=== PATIENT | female | born 1990 | race African-American/Black ===

== ENCOUNTER 2017-06-01 19:10 | Inpatient (IN) | payer OTHER ==
[2017-06-01] MEDS ORDERED: DEXTROSE 5%-LACTATED RINGERS 500 ML IV SCH ×2 (20:00→21:00)
[2017-06-01 22:03] VITALS: BMI 47.7
--- NOTE | 2017-06-01 22:06 | HP ---
Past Medical History - Primary Care Physician PCP:: Tahmina Casanova - Admission Chief Complaint: Hyperemesis History of Present Illness: 27 yo edc admitted due vomiting and nausea and abdominal pain cramping no bleeding no CALLEJAS unable to keep liquids and food down - Past Medical History ...: 1 ...Para: 0 ...Term: 0 ...: 0 ...Spon : 0 ...Induced : 0 ...LMP: 01/04/17 ... Weeks Gestation by Dates: 21.1 ...EDC by Dates: 10/11/17 - Past Surgical History Hx Myomectomy: No Hx Transabdominal Cerclage: No Additional Surgical History: left Hip pinned - Smoking History Have you smoked in the past 12 months: No - Alcohol/Substance Use Hx Alcohol Use: No History of Substance Use: reports: None Home Medications - Allergies Allergies/Adverse Reactions: Allergies Allergy/AdvReac Type Severity Reaction Status Date / Time soy Allergy Verified 06/01/17 20:08 Sulfa (Sulfonamide Allergy Verified 06/01/17 20:08 Antibiotics) sulfate Allergy Uncoded 06/01/17 20:08 - Home Medications Home Medications: Ambulatory Orders Vit/Iron Fum/Folic AC [ Tablet] 1 tab PO DAILY 06/01/17 Physical Exam - Maternity Vital Signs: Vital Signs Temperature 100.2 F H 06/01/17 21:00 Pulse Rate 90 06/01/17 21:00 Respiratory Rate 20 06/01/17 21:00 Blood Pressure 122/51 06/01/17 20:11 O2 Sat by Pulse Oximetry (%) Constitutional: Yes: Well Nourished, No Distress Cardiovascular: Yes: WNL, Regular Rate and Rhythm Lungs: Clear to auscultation - Abdominal Exam/OB Number of Fetuses: Single Presentation: Vertex Category: I - Vaginal Exam/OB Vaginal Bleediing: No Hemorrhage Risk Assessment - Risk Factors Risk Score: 0 Risk Level: Low Risk Problem List - Problems (1) Hyperemesis affecting , antepartum Code(s): O21.0 - MILD HYPEREMESIS GRAVIDARUM Assessment/Plan iup at 20 week hyperemesis gravidarum abdominal pain Plan IVF zofran labs Usg
[2017-06-01 22:21] LABS: BASO % 0.1 % (0-2.0); EOS % 0.2 % (0-4.5); HEMATOCRIT 34.2 % (32.4-45.2); HEMOGLOBIN 11.3 GM/dL (10.7-15.3); LYMPH % 8.7 % (8-40); MCH 28.4 pg (25.7-33.7); MCHC 33.1 g/dl (32.0-36.0); MEAN CELL VOLUME 85.8 fl (80-96); MEAN PLT VOLUME 8.1 fl (7.5-11.1); MONO % 2.5 % (3.8-10.2); NEUT % 88.5 % (42.8-82.8); PLATELET COUNT 213 K/MM3 (134-434); RBC 3.98 M/mm3 (3.60-5.2); RDW 14.6 % (11.6-15.6); WHITE BLOOD COUNT 5.4 K/mm3 (4.0-10.0)
[2017-06-01 22:26] LABS: URINE APPEARANCE SLCLOUDY; URINE BILIRUBIN NEGATIVE (NEGATIVE); URINE BLOOD 1+ (NEGATIVE); URINE COLOR DKYELLOW; URINE GLUCOSE (UA) NEGATIVE (NEGATIVE); URINE KETONE 2+ (NEGATIVE); URINE LEUK ESTERASE TRACE (NEGATIVE); URINE NITRITE NEGATIVE (NEGATIVE)
[2017-06-01 22:39] LABS: URINE PROTEIN 1+ (NEGATIVE)
[2017-06-01 22:45] LABS: ALK PHOS 65 U/L (45-117); ANION GAP 10 (8-16); BILIRUBIN,TOTAL 0.3 mg/dL (0.2-1.0); BLOOD UREA NITROGEN 7 mg/dL (7-18); CALCIUM 8.6 mg/dL (8.5-10.1); CHLORIDE 104 mmol/L (98-107); CO2 25 mmol/L (21-32); CREATININE 0.6 mg/dL (0.55-1.02); GLUCOSE,RANDOM 129 mg/dL (74-106); POTASSIUM 3.6 mmol/L (3.5-5.1); SGOT/AST 15 U/L (15-37); SGPT/ALT 18 U/L (12-78); SODIUM 139 mmol/L (136-145); TOT PROT 6.8 g/dl (6.4-8.2)
[2017-06-01] MEDS ORDERED: ONDANSETRON 4 MG/2 ML VIAL ONE (22:56)
[2017-06-01] MEDS: ONDANSETRON 4 MG/2 ML VIAL IVPB PRN (23:00)
[2017-06-01 23:05] LABS: EPI CELLS MODERATE /HPF (FEW); URINE MUCUS MANY
[2017-06-02] MEDS: DEXTROSE 5%-LACTATED RINGERS 1,000 ML IV SCH ×3 (09:00→17:06)
[2017-06-02] MEDS: RANITIDINE HCL 150 MG TABLET (FP) PO SCH ×2 (09:35→22:46)
[2017-06-02] MEDS ORDERED: ACETAMINOPHEN 325 MG TABLET (FP) PO PRN (14:15)
[2017-06-02] MEDS ORDERED: ACETAMINOPHEN 325 MG TABLET (FP) ONE (14:19)
--- NOTE | 2017-06-02 14:20 | PN ---
Progress Note (SOAP) - Subjective Chief Complaint: Pt still with nausea desires only clear liquids - Current Medications Current Medications: Active Medications Dextrose/Lactated Ringer's (D5-Lr -) 1,000 mls @ 125 mls/hr IV ASDIR [facility] Last Admin: 06/02/17 09:00 Dose: 125 mls/hr Ondansetron HCl (Zofran Injection) 4 mg IVPB Q6H PRN PRN Reason: NAUSEA Last Admin: 06/01/17 23:00 Dose: 4 mg Ranitidine HCl (Zantac -) 150 mg PO BID [facility] Last Admin: 06/02/17 09:35 Dose: 150 mg - Objective Vital Signs: Vital Signs Temperature 100.7 F H 06/02/17 14:08 Pulse Rate 82 06/02/17 14:08 Respiratory Rate 20 06/02/17 14:08 Blood Pressure 110/49 06/02/17 14:08 O2 Sat by Pulse Oximetry (%) Constitutional: Yes: Well Nourished, No Distress Neck: Yes: WNL Cardiovascular: Yes: WNL Respiratory: Yes: WNL Gastrointestinal: Yes: WNL Edema: No Neurological: Yes: WNL, Alert, Oriented Labs Lab Results: CBC, BMP 06/01/17 22:10 06/01/17 22:15 Problem List - Problems (1) Hyperemesis affecting , antepartum Code(s): O21.0 - MILD HYPEREMESIS GRAVIDARUM Assessment/Plan iup at 20 week hyperemesis gravidarum abdominal pain fever Plan tylenol IVF Clear liquids
[2017-06-03] MEDS: ONDANSETRON 4 MG/2 ML VIAL IVPB PRN (04:05)
[2017-06-03] MEDS: RANITIDINE HCL 150 MG TABLET (FP) PO SCH ×2 (09:24→21:31)
--- NOTE | 2017-06-03 11:24 | PN ---
Progress Note, Physician Chief Complaint: Nausea / Vomiting History of Present Illness: 27 yo , @ 21 weeks gestation, EDC 10/11/17, admitted for severe nausea and vomiting. She's now on full liquid diet; she continues to vomit. - Current Medication List Current Medications: Active Medications Acetaminophen (Tylenol -) 650 mg PO Q4H PRN PRN Reason: FEVER Last Admin: 06/02/17 14:22 Dose: 650 mg Dextrose/Lactated Ringer's (D5-Lr -) 1,000 mls @ 125 mls/hr IV ASDIR [facility] Last Admin: 06/02/17 17:06 Dose: 125 mls/hr Ondansetron HCl (Zofran Injection) 4 mg IVPB Q6H PRN PRN Reason: NAUSEA Last Admin: 06/03/17 04:05 Dose: 4 mg Ranitidine HCl (Zantac -) 150 mg PO BID [facility] Last Admin: 06/03/17 09:24 Dose: 150 mg - Objective Vital Signs: Vital Signs Temperature 98.3 F 06/03/17 08:40 Pulse Rate 74 06/03/17 08:40 Respiratory Rate 20 06/03/17 08:40 Blood Pressure 137/48 06/03/17 08:40 O2 Sat by Pulse Oximetry (%) Constitutional: Yes: No Distress Eyes: Yes: Conjunctiva Clear HENT: Yes: Atraumatic Neck: Yes: Supple Cardiovascular: Yes: Regular Rate and Rhythm Respiratory: Yes: Regular Gastrointestinal: Yes: Hyperactive Bowel Sounds. No: Tenderness, Epigastrium Genitourinary: Yes: Breast(s): Yes: WNL Musculoskeletal: Yes: WNL Extremities: Yes: WNL Neurological: Yes: Alert, Oriented Psychiatric: Yes: Alert, Oriented Labs: CBC, BMP 06/01/17 22:10 06/01/17 22:15 Assessment/Plan Hyperemesis gravidarum Continue IVF IV multivit F/U GI consult
[2017-06-03] MEDS ORDERED: MULTIVIT INJ. ADULT COMBO WITH VIT K 1 COMBO 10 ML VIAL IV SCH (11:30)
[2017-06-03] MEDS ORDERED: DEXTROSE 5% IV SCH (12:00)
[2017-06-03] MEDS ORDERED: LACTATED RINGERS IV SCH ×3 (12:00→12:15)
[2017-06-03] MEDS ORDERED: MULTIVIT IV SCH ×3 (12:00→12:15)
[2017-06-03] MEDS ORDERED: DEXTROSE IV SCH ×2 (12:06→12:15)
[2017-06-03] MEDS ORDERED: DEXTROSE 5%-LACTATED RINGERS 1,000 ML IV SCH (12:15)
[2017-06-03 15:14] LABS: URINE APPEARANCE CLEAR; URINE BILIRUBIN NEGATIVE (NEGATIVE); URINE BLOOD 1+ (NEGATIVE); URINE COLOR LTYELLOW; URINE GLUCOSE (UA) NEGATIVE (NEGATIVE); URINE KETONE NEGATIVE (NEGATIVE); URINE LEUK ESTERASE NEGATIVE (NEGATIVE); URINE NITRITE NEGATIVE (NEGATIVE); URINE PROTEIN NEGATIVE (NEGATIVE)
[2017-06-03 15:34] LABS: EPI CELLS RARE /HPF (FEW); URINE MUCUS RARE
[2017-06-03] MEDS ORDERED: LOPERAMIDE HCL 2 MG CAPSULE PO PRN (21:21)
[2017-06-03] MEDS: METOCLOPRAMIDE HCL INJECTION 10 MG/2 ML VIAL IVPB SCH (21:31)
--- NOTE | 2017-06-03 21:31 | CON.GI ---
Consult Consult Specialty:: GI Referred by:: Dr Dawit lobo - History of Present Illness Chief Complaint: diarrhea History of Present Illness: 27 y/o female 21 weeks has nausea and vomiting since . 2 days ago has persistent watery diarrhea, non-bloody, no recent travel, no recent antibiotic use. - Past Surgical History Additional Surgical History: left Hip pinned - Alcohol/Substance Use Hx Alcohol Use: No History of Substance Use: reports: None - Smoking History Smoking history: Never smoked Have you smoked in the past 12 months: No Home Medications - Allergies Allergies/Adverse Reactions: Allergies Allergy/AdvReac Type Severity Reaction Status Date / Time soy Allergy Verified 06/01/17 20:08 Sulfa (Sulfonamide Allergy Verified 06/01/17 20:08 Antibiotics) sulfate Allergy Uncoded 06/01/17 20:08 - Home Medications Home Medications: Ambulatory Orders Vit/Iron Fum/Folic AC [ Tablet] 1 tab PO DAILY 06/01/17 Physical Exam-GI Vital Signs: Vital Signs Temperature 98.6 F 06/03/17 17:26 Pulse Rate 78 06/03/17 17:26 Respiratory Rate 20 06/03/17 17:26 Blood Pressure 117/47 06/03/17 17:26 O2 Sat by Pulse Oximetry (%) Constitutional: Yes: Well Nourished Eyes: Yes: Conjunctiva Clear HENT: Yes: Atraumatic Neck: Yes: Supple Respiratory: Yes: CTA Bilaterally ...Palpate: Yes: Soft. No: Firm/Rigid, Guarding, Hepatomegaly, Mass, Pulsatile Mass, Splenomegaly, Tenderness Labs: CBC, BMP 06/01/17 22:10 06/01/17 22:15 Problem List - Problems (1) Diarrhea Assessment/Plan: viral vs bacterial R> stool analysis advance diet imodium prn Code(s): R19.7 - DIARRHEA, UNSPECIFIED (2) Hyperemesis affecting , antepartum Code(s): O21.0 - MILD HYPEREMESIS GRAVIDARUM
[2017-06-04 09:06] VITALS: BP 119/63; PULSE 72; TEMP 98.2
[2017-06-04] MEDS: METOCLOPRAMIDE HCL INJECTION 10 MG/2 ML VIAL IVPB SCH (09:22)
[2017-06-04] MEDS: RANITIDINE HCL 150 MG TABLET (FP) PO SCH (09:23)
--- NOTE | 2017-06-04 13:28 | DS ---
Physical Exam-JUNIOR ESTIMATOR Vital Signs: Vital Signs Temperature 98.2 F 06/04/17 09:05 Pulse Rate 72 06/04/17 09:05 Respiratory Rate 20 06/04/17 09:05 Blood Pressure 119/63 06/04/17 09:05 O2 Sat by Pulse Oximetry (%) Constitutional: Yes: Well Nourished, No Distress Gastrointestinal: Yes: WNL, Normal Bowel Sounds, Soft Labs: CBC, BMP 06/01/17 22:10 06/01/17 22:15 Delivery, Single - Feeding Plan Initial Plan: Exclusive throughout hospitalization Discharge Summary Reason For Visit: HYPEREMESIS Current Active Problems Diarrhea (Acute) Hyperemesis affecting , antepartum (Acute) Procedures: Principal: IV fluids with vitamins Hospital Course: Diarrhea vomiting unremarkable course Condition: Good - Instructions Diet, Activity, Other Instructions: Physical activity Resume your normal everyday activity as tolerated no heavy lifting or exercise until seen by your surgeon. You may walk unlimited harsha of and climb stairs. You may resume driving the car when you feel safe and comfortable behind the wheel. No sexual activity as instructed. Wound care If you have a bandage, leave it on, and keep dry for 48-72 hours. After that time discard the outer bandage. If they are tapes on the skin under the out of bandage leave them in place. They will peel off in the next 7 to 10 days. Do Not Peel them off. You may shower the day after surgery. If there are tapes present on the skin, you may shower over them. Diet There are no dietary restrictions. Eat healthy, high-fiber foods. Drink 6 to 8 glasses of liquid each day. This will assist in keeping your bowels are regular. Pain management You may take Tylenol or acetaminophen or Ibuprofen (for example, Motrin, Advil etc.) from my pain prescription medication is ordered should be taken as prescribed for moderate to severe pain. Call MD for any of the following: Severe pain not relieved by medication Fever of 101 or higher Excessive bleeding or drainage on dressing Inability to urinate Referrals: Tahmina Casanova MD [Staff Physician] - Disposition: HOME - Home Medications Comprehensive Discharge Medication List: Ambulatory Orders Vit/Iron Fum/Folic AC [ Tablet] 1 tab PO DAILY 06/01/17
== END 2017-06-04 16:45 | disposition home or self-care (01) | DRG 566 ==
LOC: JDEL 19:10 → JLDR 21:40 → J3W 06-02 00:49
PROVIDERS: ADMIT Obstetrics & Gynecology; ATTEND Obstetrics & Gynecology
DX: O21.0 Mild hyperemesis gravidarum (principal); Z3A.21 21 weeks gestation of pregnancy; R50.9 Fever, unspecified; R19.7 Diarrhea, unspecified
CPT/HCPCS: 36415; 76815; 80053; 81003; 81015; 85025; 86850; 86900; 86901; 87045; 87046; 87086; 87205; 87324; 87449

== ENCOUNTER 2017-10-04 07:15 | Inpatient (IN) | payer OTHER ==
[2017-10-04 08:19] VITALS: BMI 46.8
[2017-10-04 08:51] LABS: BASO % 0.4 % (0-2.0); EOS % 1.3 % (0-4.5); HEMATOCRIT 34.7 % (32.4-45.2); HEMOGLOBIN 11.5 GM/dL (10.7-15.3); LYMPH % 22.1 % (8-40); MCH 28.2 pg (25.7-33.7); MCHC 33.1 g/dl (32.0-36.0); MEAN CELL VOLUME 85.3 fl (80-96); MEAN PLT VOLUME 8.7 fl (7.5-11.1); MONO % 7.5 % (3.8-10.2); NEUT % 68.7 % (42.8-82.8); PLATELET COUNT 185 K/MM3 (134-434); RBC 4.07 M/mm3 (3.60-5.2); RDW 14.6 % (11.6-15.6); WHITE BLOOD COUNT 6.1 K/mm3 (4.0-10.0)
[2017-10-04 09:00] LABS: INR 1.02 (0.82-1.09); PROTHROMBIN TIME (PATIENT) 11.5 SEC (9.7-13.0)
[2017-10-04 09:03] LABS: ACTIVATED PTT 26.9 SECONDS (26.9-34.4)
[2017-10-04 09:12] LABS: CALCIUM 8.1 mg/dL (8.5-10.1); CHLORIDE 107 mmol/L (98-107); POTASSIUM 3.4 mmol/L (3.5-5.1); SODIUM 139 mmol/L (136-145)
[2017-10-04 09:16] LABS: ANION GAP 7 (8-16); BLOOD UREA NITROGEN 4 mg/dL (7-18); CO2 25 mmol/L (21-32); CREATININE 0.7 mg/dL (0.55-1.02); GLUCOSE,RANDOM 69 mg/dL (74-106)
[2017-10-04] MEDS ORDERED: PROMETHAZINE HCL 25 MG/1 ML VIAL IVPUSH ONE (09:51)
[2017-10-04] MEDS ORDERED: ONDANSETRON *ODT* 4 MG TABLET SL PRN (09:53)
[2017-10-04] MEDS ORDERED: DINOPROSTONE 10 MG VAGINAL SUPPOSITORY VG ONE (09:54)
[2017-10-04] MEDS ORDERED: TUBERCULIN PPD 5 TU/0.1ML SYRINGE (IN PATIENT USE ONLY) ID ONE (10:00)
--- NOTE | 2017-10-04 12:14 | HP ---
Past Medical History - Primary Care Physician PCP:: Tahmina Casanova - Admission Chief Complaint: Hyperemesis at 39 week History of Present Illness: 27 yo P0 EGA 39 week admitted with obesity, hyperemesis and for induction care significant for hyperemesis History Source: Patient - Past Medical History ...: 1 ...Para: 0 ...EDC by Sono: 10/11/17 - Past Surgical History Past Surgical History: Yes: None Hx Myomectomy: No Hx Transabdominal Cerclage: No - Smoking History Smoking history: Never smoked Have you smoked in the past 12 months: No - Alcohol/Substance Use Hx Alcohol Use: No History of Substance Use: reports: None - Social History Usual Living Arrangement: Yes: With Spouse History of Recent Travel: No Home Medications - Allergies Allergies/Adverse Reactions: Allergies Allergy/AdvReac Type Severity Reaction Status Date / Time soy Allergy Difficulty Verified 10/04/17 07:56 Breathing Sulfa (Sulfonamide Allergy Difficulty Verified 10/04/17 07:56 Antibiotics) Breathing sulfate Allergy Difficulty Uncoded 10/04/17 07:56 Breathing - Home Medications Home Medications: Ambulatory Orders Vit/Iron Fum/Folic AC [ Tablet] 1 tab PO DAILY 06/01/17 Metoclopramide HCl [Metoclopramide HCl Odt] 10 mg PO TID PRN 08/16/17 Physical Exam - Maternity Vital Signs: Vital Signs Temperature 97.8 F 10/04/17 10:25 Pulse Rate 71 10/04/17 11:25 Respiratory Rate 20 10/04/17 11:25 Blood Pressure 127/74 10/04/17 11:25 O2 Sat by Pulse Oximetry (%) Constitutional: Yes: Well Nourished, No Distress, Obese HENT: Yes: WNL Neck: Yes: WNL Cardiovascular: Yes: WNL Lungs: Clear to auscultation Breast(s): Yes: WNL - Abdominal Exam/OB Number of Fetuses: Single Presentation: Vertex Contractions: Yes Monitor Mode: External Heart Rate (range): 135 Category: I - Vaginal Exam/OB Vaginal Bleediing: No Speculum Exam: No Dilatation (cm): 1-2 cm Presentation: Vertex/Position - Physical Exam Musculoskeletal: Yes: WNL Extremities: Yes: WNL Edema: No Psychiatric: Yes: WNL, Alert, Oriented - Labs Lab Results: CBC, BMP 10/04/17 08:30 10/04/17 08:30 Hemorrhage Risk Assessment - Risk Factors Medium Risk Factors: Yes: Prior , uterine surgery,or multiple laparotomies Risk Score: 1 Risk Level: Medium Risk Problem List - Problems (1) Obesity affecting in third trimester Code(s): O99.213 - OBESITY COMPLICATING , THIRD TRIMESTER (2) Hyperemesis affecting , antepartum Code(s): O21.0 - MILD HYPEREMESIS GRAVIDARUM (3) 39 weeks gestation of Code(s): Z3A.39 - 39 WEEKS GESTATION OF Assessment/Plan IUP at 39 weeks hyperemesis obesity induction due to vomiting Plan cervidil/pitocin
[2017-10-04] MEDS ORDERED: OXYTOCIN 20 UNITS in 0.9% NS 20 UNIT/1,000 ML INFUS.BAG IV ONE (19:23)
[2017-10-04] MEDS ORDERED: LIDOCAINE HCL 1% PRESERVATIVE FREE - 30ML VIAL ONE (19:24)
[2017-10-04] MEDS ORDERED: BUTORPHANOL TARTRATE 1 MG/ML VIAL IVPB PRN (20:00)
[2017-10-04] MEDS ORDERED: METOCLOPRAMIDE HCL 10 MG TABLET (FP) PO PRN (22:07)
[2017-10-04] MEDS ORDERED: OXYTOCIN 30 UNITS in 0.9% NS 30 UNIT/500 ML INFUS.BAG IVPB SCH (22:15)
[2017-10-05] MEDS ORDERED: SODIUM PHOSPHATE/NA BIPHOS 133 ML ENEMA RC ONE (00:30)
[2017-10-05] MEDS ORDERED: OXYTOCIN 30 UNITS in 0.9% NS 30 UNIT/500 ML INFUS.BAG IVPB SCH (00:30)
[2017-10-05] MEDS ORDERED: OXYTOCIN 30 UNITS in 0.9% NS 30 UNIT/500 ML INFUS.BAG IVPB ONE (00:49)
[2017-10-05] MEDS: ELECTROLYTE-148 SOLN 1,000 ML IV SCH ×2 (01:00→06:22)
[2017-10-05] MEDS ORDERED: BUTORPHANOL TARTRATE 1 MG/ML VIAL ONE ×2 (07:54)
[2017-10-05] MEDS ORDERED: PROMETHAZINE HCL 25 MG/1 ML VIAL ONE (07:55)
--- NOTE | 2017-10-05 09:50 | PN ---
Ante-Partal Exam - Subjective Subjective: Pt with c/o pressure Pt ruptured at 630 am Pt will desire epidural Pt on 13 mu pitocin Vital Signs: Vital Signs Temperature 98.3 F 10/05/17 09:00 Pulse Rate 66 10/05/17 09:00 Respiratory Rate 20 10/05/17 09:00 Blood Pressure 132/77 10/05/17 09:00 O2 Sat by Pulse Oximetry (%) - Contractions Contractions: Yes Regularity: Irregular Intensity: Mild/Mod Monitor Mode: External - Exam during Labor Heart Rate: 130 Variability: Moderate Heart Rate Location: [facility] Category: I Monitor Decelerations: None Exam: Vaginal Dilatation (cm): 3 cm Effacement (%): 80 Amniotic Membrane Status: Ruptured Presentation: Vertex Station: 0 - Intrapartum Hemorrhage Risk Risk Score: 1 Risk Level: Medium Risk - Assessment/Plan Assessment/Plan: Hyperemesis obesity Cat 1 s/p cervidil Plan continue present management
[2017-10-05] MEDS ORDERED: OXYTOCIN 20 UNITS in 0.9% NS 20 UNIT/1,000 ML INFUS.BAG IV ONE ×2 (11:15→11:18)
[2017-10-05] MEDS ORDERED: LIDOCAINE HCL 1% PRESERVATIVE FREE - 30ML VIAL ONE (11:23)
--- NOTE | 2017-10-05 11:48 | PN ---
Delivery - Delivery Vaginal Delivery: No Problems Type of Anesthesia: None (Pt had stadol/phenergan IV during labor process.) Episiotomy/Laceration: None EBL (cc): 350 Delivery, Single - Stages of Labor Date of Delivery: 10/05/17 Time of Delivery: 11:29 Date Placenta Delivered: 10/05/17 Time Placenta Delivered: :31 Placenta: Yes: Spontaneous - Condition of Infant Biomedical Engineering Technologist/Senior Java Ui Developer Present: No Infant Gender: Male Position: Right, OA - 1 Minute Total Score: 9 5 Minutes Total Score: 9 - Feeding Plan Initial Plan: Elected not to breastfeed exclusively throughout hospitalization Remarks - Remarks Remarks: 27 y/o s/p uncomplicated across intact perineum from RENZO position anterior shoulder (left) delivered with ease along with remainder of cord clamped and cut mouth/nose bulb suctioned uterine atony noted s/p delivery, recieved 1 dose IM methergine 0.2mg s/p delivery EBL 350cc sponge count correct mom and baby stable
[2017-10-05] MEDS ORDERED: METHYLERGONOVINE MALEATE 0.2 MG/1 ML AMP IM PRN ×2 (11:49→11:52)
[2017-10-05] MEDS ORDERED: BENZOCAINE 20% 57 GM BOTTLE TP PRN (11:49)
[2017-10-05] MEDS ORDERED: BISACODYL 10 MG SUPP.RECT RC PRN (11:49)
[2017-10-05] MEDS ORDERED: BENZOCAINE 28 GM HEMORRHOIDAL OINTMENT TP PRN (11:49)
[2017-10-05] MEDS ORDERED: WITCH HAZEL 50% (TUCKS) 40 PAD/JAR PAD TP PRN (11:49)
[2017-10-05] MEDS ORDERED: OXYTOCIN 20 UNITS in 0.9% NS 20 UNIT/1,000 ML INFUS.BAG IV SCH (12:00)
[2017-10-05 12:06] LABS: ARTERIAL BLD GAS O2 SATURATION 39.4 % (90-98.9); ARTERIAL BLOOD GAS BASE EXCESS -4.1 meq/l (-2-2); ARTERIAL BLOOD GAS PCO2 46.3 mmHg (35-45); ARTERIAL BLOOD GAS PO2 21.5 mmHg (80-100)
[2017-10-05 12:14] LABS: VENOUS PC02 46.4 mmHg (38-52); VENOUS PH 7.31 (7.32-7.42); VENOUS PO2 20.9 mmHg (28-48)
[2017-10-05] MEDS: PRENATAL VITAMINS W/ FOLIC ACID TABLET (FP) PO SCH (13:42)
[2017-10-05] MEDS: FERROUS SO4 325 MG TABLET (FP) PO SCH ×2 (13:43→17:02)
[2017-10-05] MEDS: ACETAMINOPHEN 325 MG TABLET (FP) PO PRN (15:37)
[2017-10-05] MEDS: IBUPROFEN 600 MG TABLET (FP) PO PRN (15:38)
[2017-10-06] MEDS: IBUPROFEN 600 MG TABLET (FP) PO PRN ×2 (03:17→13:34)
[2017-10-06] MEDS: ACETAMINOPHEN 325 MG TABLET (FP) PO PRN ×3 (03:18→22:43)
--- NOTE | 2017-10-06 07:17 | PN ---
Post Note - Post Date of Delivery: 10/05/17 Post Day: 1 Vital Signs: Vital Signs - 24 hr 10/05/17 10/05/17 10/05/17 08:14 09:00 10:00 Temperature 98.7 F 98.3 F 98.4 F Pulse Rate 77 66 74 Respiratory 20 20 20 Rate Blood Pressure 138/77 132/77 133/76 O2 Sat by Pulse Oximetry (%) 10/05/17 10/05/17 10/05/17 11:45 12:00 12:15 Temperature Pulse Rate 78 76 70 Respiratory 20 20 20 Rate Blood Pressure 138/77 132/74 130/72 O2 Sat by Pulse 100 100 100 Oximetry (%) 10/05/17 10/05/17 10/05/17 12:30 13:30 18:00 Temperature 98.4 F 99.7 F H 99 F Pulse Rate 77 74 73 Respiratory 20 18 18 Rate Blood Pressure 128/76 141/71 144/80 O2 Sat by Pulse 100 Oximetry (%) 10/05/17 10/06/17 10/06/17 21:31 02:00 06:00 Temperature 99.6 F 98.2 F 97.7 F Pulse Rate 78 89 75 Respiratory 20 20 20 Rate Blood Pressure 125/96 124/67 144/84 O2 Sat by Pulse Oximetry (%) Labs: Laboratory Results - last 24 hr 10/05/17 10/05/17 11:54 11:54 Puncture Site No Result Required. ABG pH 7.30 L ABG pCO2 at Pt Temp 46.3 H ABG pO2 at Pt Temp 21.5 L* ABG HCO3 22.0 ABG O2 Sat (Measured) 39.4 L* ABG O2 Content 8.0 L* ABG Base Excess -4.1 L Gilberto Test No Result Required. VBG pH 7.31 L POC VBG pCO2 46.4 POC VBG pO2 20.9 L Mixed VBG HCO3 22.7 Oxygen Flow Rate No Result Required. - Subjective Subjective: No Complaints - Objective Afebrile: Yes Breast: Not engorged Abdomen: Soft Uterus: Fundus firm Vagina: Scant lochia Extremities: Non-tender - Assessment/Plan (1) Obesity affecting in third trimester Assessment: S/P Normal , Other (Low grade temp) Plan: Routine Care
[2017-10-06 08:07] LABS: BASO % 0.3 % (0-2.0); EOS % 0.3 % (0-4.5); HEMATOCRIT 31.6 % (32.4-45.2); HEMOGLOBIN 10.7 GM/dL (10.7-15.3); LYMPH % 15.5 % (8-40); MCH 29.2 pg (25.7-33.7); MCHC 33.8 g/dl (32.0-36.0); MEAN CELL VOLUME 86.4 fl (80-96); MEAN PLT VOLUME 9.1 fl (7.5-11.1); MONO % 6.9 % (3.8-10.2); PLATELET COUNT 176 K/MM3 (134-434); RBC 3.65 M/mm3 (3.60-5.2); RDW 14.6 % (11.6-15.6)
[2017-10-06] MEDS: FERROUS SO4 325 MG TABLET (FP) PO SCH ×3 (08:25→17:31)
[2017-10-06] MEDS: PRENATAL VITAMINS W/ FOLIC ACID TABLET (FP) PO SCH (09:26)
[2017-10-06] MEDS ORDERED: DIPHTH,PERTUSS(ACELL),TET 0.5 ML DISP.SYRIN IM ONE (14:00)
[2017-10-06] MEDS ORDERED: SENNOSIDES/DOCUSATE COMBO (SENNA PLUS) TABLET (UD) PO PRN (22:00)
--- NOTE | 2017-10-07 06:56 | DS ---
Physical Exam-CUT AND COVER LINE WORKER Vital Signs: Vital Signs Temperature 97.6 F 10/06/17 20:47 Pulse Rate 84 10/06/17 20:47 Respiratory Rate 20 10/06/17 20:47 Blood Pressure 139/88 10/06/17 20:47 O2 Sat by Pulse Oximetry (%) 100 10/05/17 12:30 Constitutional: Yes: Well Nourished, No Distress, Calm Eyes: Yes: Conjunctiva Clear, EOM Intact HENT: Yes: Atraumatic, Normocephalic Respiratory: Yes: WNL Gastrointestinal: Yes: WNL Internal Exam Deferred: Yes Extremities: Yes: WNL Neurological: Yes: Alert, Oriented Psychiatric: Yes: Alert, Oriented Labs: CBC, BMP 10/06/17 07:42 10/04/17 08:30 Delivery - Delivery Vaginal Delivery: No Problems Type of Anesthesia: None Episiotomy/Laceration: None EBL (cc): 350 Delivery, Single - Stages of Labor Date 1st Stage Initiatied: 10/05/17 Time 1st Stage Initiated: 08:00 Date 2nd Stage Initiated: 10/05/17 Time 2nd Stage Initiated: 11:06 Date of Delivery: 10/05/17 Time of Delivery: 11:29 Time Placenta Delivered: 11:31 Placenta: Yes: Spontaneous - Condition of Blood Bank Laboratory Technician/Industrial Sales Representative Present: No Infant Gender: Male Weight: 6 lb 6 oz Position: Right, OA Total Hours ROM (Hrs/Mins): 4h 59min - 1 Minute Total Score: 9 5 Minutes Total Score: 9 - Feeding Plan Initial Plan: Elected not to breastfeed exclusively throughout hospitalization Discharge Summary Reason For Visit: INDUCTION Current Active Problems 39 weeks gestation of (Acute) Obesity affecting in third trimester (Acute) Procedures: Principal: labor induction and normal Hospital Course: Pt admitted on 10/04 for labor induction and after labor induction underwent normal spontaneous vaginal delivery on 10/05/16. The patient underwent an uncomplicated post course and was discharged home in stable condition on post day 2. Condition: Good - Instructions Diet, Activity, Other Instructions: Physical activity Resume your normal everyday activity as tolerated no heavy lifting or exercise until seen by your surgeon. You may walk unlimited harsha of and climb stairs. You may resume driving the car when you feel safe and comfortable behind the wheel. No sexual activity as instructed. Wound care If you have a bandage, leave it on, and keep dry for 48-72 hours. After that time discard the outer bandage. If they are tapes on the skin under the out of bandage leave them in place. They will peel off in the next 7 to 10 days. Do Not Peel them off. You may shower the day after surgery. If there are tapes present on the skin, you may shower over them. Diet There are no dietary restrictions. Eat healthy, high-fiber foods. Drink 6 to 8 glasses of liquid each day. This will assist in keeping your bowels are regular. Pain management You may take Tylenol or acetaminophen or Ibuprofen (for example, Motrin, Advil etc.) from my pain prescription medication is ordered should be taken as prescribed for moderate to severe pain. Call MD for any of the following: Severe pain not relieved by medication Fever of 101 or higher Excessive bleeding or drainage on dressing Inability to urinate Referrals: Adela Penn DO [Staff Physician] - 2 Weeks (Blood pressure check) Disposition: HOME - Home Medications Comprehensive Discharge Medication List: Ambulatory Orders Vit/Iron Fum/Folic AC [ Tablet] 1 tab PO DAILY 06/01/17 Metoclopramide HCl [Metoclopramide HCl Odt] 10 mg PO TID PRN 08/16/17 Ibuprofen [Motrin -] 600 mg PO TID #21 tablet 10/06/17
[2017-10-07 08:10] VITALS: BP 138/81; PULSE 66; TEMP 98.3
[2017-10-07] MEDS: FERROUS SO4 325 MG TABLET (FP) PO SCH ×2 (08:47→11:49)
[2017-10-07] MEDS: PRENATAL VITAMINS W/ FOLIC ACID TABLET (FP) PO SCH ×2 (08:48→09:11)
== END 2017-10-07 14:20 | disposition home or self-care (01) | DRG 560 ==
LOC: JLDR 07:15 → J3W 10-05 13:30
PROVIDERS: ADMIT Obstetrics & Gynecology; ATTEND Obstetrics & Gynecology
PROC: 10E0XZZ Delivery of Products of Conception, External Approach (ICD-10-PCS; principal; 2017-10-05)
DX: O21.0 Mild hyperemesis gravidarum (principal); Z68.42 Body mass index [BMI] 45.0-49.9, adult; O72.1 Other immediate postpartum hemorrhage; E66.9 Obesity, unspecified; O99.214 Obesity complicating childbirth; Z3A.39 39 weeks gestation of pregnancy; Z37.0 Single live birth
CPT/HCPCS: 36415; 36600; 59409; 80048; 82803; 85025; 85610; 85730; 86593; 86850; 86900; 86901; 90715